=== PATIENT | female | born 1985 | race Caucasian/White ===

== ENCOUNTER 2017-02-01 08:57 | Day surgery (SDC) | payer BC ==
[~2017-02-01 08:57] MED LIST: Sodium Chloride 0.9% 10 ML Syringe FLUSH PRN; Sodium Chloride 0.9% 2.5 ML Syringe FLUSH PRN; ceFAZolin 2 GM in Premix Bag 1 BAG IV ONE
[2017-02-01] MEDS ORDERED: Midazolam 1 MG/ML 2 ML SDV ONE (10:34)
[2017-02-01] MEDS ORDERED: fentaNYL 100 MCG/2 ML SDV ONE ×3 (10:35→12:08)
--- NOTE | 2017-02-01 10:35 | PCM.PREANE ---
Preanesthetic Assessment - Anesthesia/Transfusion/Family Hx Anesthesia History: Prior Anesthesia Reaction Other Type of Anesthesia Reaction Comment: DENIES ANY PROBLEMS WITH ANESTHESIA Family History of Anesthesia Reaction: No Transfusion History: No Prior Transfusion(s) Intubation History: Unknown - Review of Systems General: No Symptoms Pulmonary: No Symptoms Cardiovascular: No Symptoms Gastrointestinal: No Symptoms Neurological: No Symptoms Other: Reports: None - Physical Assessment NPO Status Date: 01/31/17 NPO Status Time: 22:30 O2 Sat by Pulse Oximetry: 97 Respiratory Rate: 16 Vital Signs: Last Vital Signs Temp 36.4 C 02/01/17 09:00 Pulse 63 02/01/17 09:00 Resp 16 02/01/17 09:00 BP 107/68 02/01/17 09:00 Pulse Ox 97 02/01/17 09:00 Height: 1.65 m Weight: 82.554 kg ASA Class: 2 Mental Status: Alert & Oriented x3 Airway Class: Mallampati = 2 Dentition: Reports: Normal Dentition (braces upper and lower) Thyro-Mental Finger Breadths: 3 Mouth Opening Finger Breadths: 3 ROM/Head Extension: Full Lungs: Clear to Auscultation, Normal Respiratory Effort Cardiovascular: Regular Rate, Regular Rhythm - Lab Values: Laboratory Last Values WBC 8.87 K/uL (4.0-11.0) 02/01/17 09:52 RBC 4.67 M/uL (4.30-5.90) 02/01/17 09:52 Hgb 13.3 g/dL (12.0-16.0) 02/01/17 09:52 Hct 39.7 % (36.0-46.0) 02/01/17 09:52 MCV 85.0 fL (80.0-98.0) 02/01/17 09:52 MCH 28.5 pg (27.0-32.0) 02/01/17 09:52 MCHC 33.5 g/dL (31.0-37.0) 02/01/17 09:52 RDW Std Deviation 41.0 fl (28.0-62.0) 02/01/17 09:52 RDW Coeff of Ansley 13 % (11.0-15.0) 02/01/17 09:52 Plt Count 260 K/uL (150-400) 02/01/17 09:52 MPV 9.30 fL (7.40-12.00) 02/01/17 09:52 Nucleated RBC % 0.0 /100WBC 02/01/17 09:52 Nucleated RBCs # 0 K/uL 02/01/17 09:52 - Allergies Allergies/Adverse Reactions: Allergies Allergy/AdvReac Type Severity Reaction Status Date / Time No Known Allergies Allergy Verified 01/27/17 13:35 - Blood Blood Available: No - Anesthesia Plan Pre-Op Medication Ordered: None - Acknowledgements Anesthesia Type Planned: General Anesthesia Pt an Appropriate Candidate for the Planned Anesthesia: Yes Alternatives and Risks of Anesthesia Discussed w Pt/Guardian: Yes Pt/Guardian Understands and Agrees with Anesthesia Plan: Yes PreAnesthesia Questionnaire - Past Health History Medical/Surgical History: Denies Medical/Surgical History HEENT History: Reports: Other (See Below) Other HEENT History: wears glasses, has braces Cardiovascular History: Reports: None Respiratory History: Reports: None Gastrointestinal History: Reports: Irritable Bowel Syndrome Genitourinary History: Reports: None 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, , Other (See Below) (ovarian cyst) Musculoskeletal History: Reports: None Neurological History: Reports: None Psychiatric History: Reports: None Endocrine/Metabolic History: Reports: Obesity/BMI 30+ Hematologic History: Reports: Anemia Immunologic History: Reports: None Oncologic (Cancer) History: Reports: None Dermatologic History: Reports: None - Infectious Disease History Infectious Disease History: Reports: Chicken Pox - Past Surgical History GI Surgical History: Reports: Colonoscopy Female Surgical History: Reports: Breast Reduction, LEEP, Other (See Below) Other Female Surgeries/Procedures: laparoscopy with removal of ovarian cyst Musculoskeletal Surgical History: Reports: Other (See Below) Other Musculoskeletal Surgeries/Procedures:: removal of cysts form right arm - SUBSTANCE USE Smoking Status *Q: Current Every Day Smoker (10-15 cigarettes per day) Tobacco Use Within Last Twelve Months: Cigarettes Days Per Week of Alcohol Use: 1 Number of Drinks Per Day: 1 Total Drinks Per Week: 1 Recreational Drug Use History: No - HOME MEDS Home Medications: Home Meds . [No Known Home Meds] 04/17/16 [History] - CURRENT (IN HOUSE) MEDS Current Meds: Current Medications Sodium Chloride (Saline Flush) 10 ml FLUSH ASDIRECTED PRN PRN Reason: Keep Vein Open Sodium Chloride (Saline Flush) 2.5 ml FLUSH ASDIRECTED PRN PRN Reason: Keep Vein Open Discontinued Medications Cefazolin Sodium/Dextrose 2 gm (/ Premix) 50 mls @ 100 mls/hr IV .ONCE ONE Stop: 01/27/17 05:29
[2017-02-01] MEDS ORDERED: Bupivacaine 0.25% 10 ML SDV ONE (10:41)
[2017-02-01] MEDS ORDERED: Rocuronium 10 MG/ML 10 ML Syringe ONE (11:06)
[2017-02-01] MEDS ORDERED: Methylene Blue 50 MG/10 ML Ampule ONE (11:12)
[2017-02-01] MEDS ORDERED: Ondansetron 4 MG/2 ML SDV ONE ×2 (11:16→11:49)
[2017-02-01] MEDS ORDERED: Ketorolac 30 MG/ML SDV ONE (11:49)
[2017-02-01] MEDS ORDERED: Neostigmine Methylsulfate 1 MG/ML 5 ML Syringe ONE (12:15)
--- NOTE | 2017-02-01 12:48 | PCM.OPNOTE ---
- General Post-Op/Procedure Note Date of Surgery/Procedure: 02/01/17 Operative Procedure(s): Operative Laparoscopy with pelvic washings, aspiration of left ovarian cyst, chromotubation, lysis of adhesions, right salpingectomy Findings: Left ovarian suspected endometrioma, blockage of right fallopian tube with hematosalpinx, and severe adhesions of the ovaries, fallopian tubes and ovaries noted.Posterior cul de sac is obliterated. Stage IV endometriosis. Pre Op Diagnosis: 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. Pelvic pain Post-Op Diagnosis: 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, left ovarian cyst, hematosalpinx Anesthesia Technique: General ET Tube Primary Surgeon: Ondina Small Secondary Surgeon: Nir Billy Pathology: Peritoneal wash, endometrial cyst fluid, fallopian tube Fluid Replacement, Intraop: 1,600 EBL in mLs: 20 Complications: None Condition: Good Free Text/Narrative:: Intake & Output 01/31/17 02/01/17 02/01/17 22:59 06:59 14:59 Output Total 30 Balance -30 [id number]
[2017-02-01] MEDS: fentaNYL 100 MCG/2 ML SDV IVPUSH PRN ×2 (12:52→13:01)
[2017-02-01] MEDS ORDERED: Ondansetron 4 MG/2 ML SDV IVPUSH ONE (13:32)
[2017-02-01 15:03] VITALS: BP 114/73
--- NOTE | 2017-02-02 11:05 | OR ---
SURGEON: Ondina Small M.D. DATE OF PROCEDURE: 02/01/2017 PREOPERATIVE DIAGNOSES: 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 with suspected endometrioma and hematosalpinx. POSTOPERATIVE DIAGNOSES: 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 with suspected endometrioma and hematosalpinx. PROCEDURES PERFORMED: 1. Operative laparoscopy. 2. Pelvic washings. 3. Aspiration of left ovarian cyst. 4. Chromotubation of fallopian tubes. 5. Adhesiolysis. 6. Right salpingectomy. EDGE TRIMMER: Nir Billy MS IV. ANESTHESIA: General. ESTIMATED BLOOD LOSS: Less than 20 mL. FLUIDS: 1600 mL of crystalloid. FINDINGS: Stage IV endometriosis. There is a left probable endometrioma. The left fallopian tube, however, appears grossly normal, and with chromotubation, dye spills easily from the fimbriated end, helping to ensure patency. The uterus is completely adhesed along the posterior aspect to surrounding bowel and mesentery. Posterior cul-de-sac is obliterated. The right fallopian tube and ovary are adhesed to the right posterior aspect of the uterus. The fallopian tube is eventually able to be mobilized. The ovary is not able to be visualized due to the dense adhesions. Upper abdomen appears normal. DISPOSITION: The patient to PACU, stable. SPECIMENS: To Pathology. INDICATIONS FOR PROCEDURE: Amber is a 31-year-old female with known endometriosis. Most recently, she has had acute increase of pain. She has been trying to conceive. The hCG is negative. However, ultrasound had shown an interval significant change from November 2016 to December 2016 with a large, approximately 7 cm suspected endometrioma and a right probable hydrosalpinx versus hematosalpinx. At this time, patient would like to proceed with surgical evaluation to hopefully help alleviate some of the discomfort that she is having and also help to ultimately make plan of care for her regarding her endometriosis. Proper consents were obtained. PROCEDURE IN DETAIL: The patient was taken to the operating room, where she underwent general anesthesia. She was placed in a modified dorsolithotomy position and was prepped and draped in the usual sterile fashion. SCDs to lower extremities. She received 2 g of Ancef prophylactically. She was prepped and draped in usual sterile fashion and a time-out was performed. A speculum was introduced into the vagina. The posterior lip of the cervix was tented downward. The uterine HUMI manipulator was gently introduced into the uterine cavity. The balloon was insufflated. Instruments other than the manipulator were now removed from the vagina. Gloves were changed. Attention turned abdominally. Infraumbilically, region was prepped with 0.25% Marcaine. Please see nurse's notes for total amount dispensed during the procedure. A 5-mm sagittal infraumbilical skin incision was now created. Hemostats were now utilized to dissect down to the level of the fascia, which was tented upward and entered sharply. Edges of the fascia were secured with 0 Vicryl. The peritoneum was now gently entered, it was hemostatic, and the 5-mm trocar was introduced. Pneumoperitoneum was achieved. A laparoscope was introduced. The upper abdomen appears to have no acute pathology. The uterus is fairly adhesed along the posterior aspect. There appears to be a left ovarian cyst, most consistent with an endometrioma. The left fallopian tube appears pink and fairly healthy. Right fallopian tube is swollen, distended, erythematous, and adhesed to the right posterior aspect of the uterus. Right ovary is adhesed to the broad ligament and to the posterior aspect of the uterus. A significant amount of omental bowel adhesions along the posterior aspect of the uterus obliterating the cul-de-sac. A right and left lower quadrant 5 mm trochar is introduced under direct visualization after prepping the regions with 0.25% marcaine and creating 5 mm incisions. Attention is now turned to performing pelvic washings, and these were obtained. The left ovary was now entered with a Harmonic scalpel, and contents were aspirated with suction rubbish collector. The contents appear to have a chocolate cyst appearance, consistent with endometrioma. Once the loculations were broken up and the cyst was adequately evacuated, I cauterized the edge of the region of the cystotomy. A gentle adhesiolysis was performed to mobilize mesentery and omentum away from the posterior aspect of the uterus. Most of these were mobilized bluntly; however, Harmonic scalpel was also utilized to mobilize and release the adhesions. The uterus was now slightly more mobile. Hydrodissection was performed along the right broad ligament of fallopian tube region. The right fallopian tube was now able to be more thoroughly visualized and somewhat more mobile. At this point, chromotubation using dilute methylene blue injecting through the HUMI uterine manipulator was utilized. The left fallopian tube appears patent with dye spilling easily from the fimbriated end. Despite multiple attempts, there is no dye spill seen from the right fallopian tube. It is completely occluded, swollen, and edematous. At this juncture, it was felt to be best to proceed with right salpingectomy in order to remove this diseased tube, which would hopefully help with acute pain, as well as a long-term decrease of the risk for ectopic gestation. The right fallopian tube is now isolated using the Harmonic scalpel. Salpingectomy is performed. The left lower quadrant trocar is replaced with a 12-mm trocar. Endobag was introduced into the abdominal cavity, and the right fallopian tube was able to be placed in this, and the bag with its contents was now removed, to be sent to Pathology for further analysis. Copious irrigation of the pelvis is now performed and suctioned. Hemostasis appears evident. Relief pressure is decreased down to 5 mm. Hemostasis remains evident. The pelvis is once again irrigated and suction dried. The trocars are now removed under direct visualization in the right and left lower quadrant regions. The pneumoperitoneum is released. The laparoscope is removed, as well as the infraumbilical trocar. WOUND CLOSURE: The fascia for the infraumbilical incision is reapproximated using 0 Vicryl, as well as the left lower quadrant fascia. The skin edges are closed using 4-0 Monocryl in subcuticular fashion. COUNT RESULTS: Sponge, instrument, and needle counts were correct x2. The speculum was introduced into the vagina. HUMI uterine manipulator was removed. The region was inspected, and hemostasis was found to be evident. All instruments were removed from vagina. Once again, sponge and instrument and needle counts were correct x2. POSTOPERATIVE CONDITION: The patient tolerated this procedure well. She will go to PACU in stable condition. Specimens to pathology. KODI / KATERINE /[id number] ROBERT
== END 2017-02-01 15:00 | disposition home or self-care (01) ==
LOC: MW.SDS 08:57
PROVIDERS: ATTEND Obstetrics & Gynecology
DX: N80.2 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 of fallopian tube (principal); N73.6 Female pelvic peritoneal adhesions (postinfective); F17.210 Nicotine dependence, cigarettes, uncomplicated; E66.9 Obesity, unspecified; Z98.890 Other specified postprocedural states; Z68.30 Body mass index [BMI] 30.0-30.9, adult
CPT/HCPCS: 36415; 58350; 58661; 84703; 85027; 88104; 88305; J1885; J2250; J2405; J3010; 00840

== ENCOUNTER 2017-10-04 07:42 | Inpatient (IN) | payer BC ==
[~2017-10-04 07:42] MED LIST changes: +Lidocaine 2% 5 ML SDV ONE; +Midazolam 1 MG/ML 2 ML SDV ONE; +Propofol 200 MG/20 ML SDV ONE; +ceFAZolin 1 GM in Premix Bag 1 BAG IV ONE; -ceFAZolin 2 GM in Premix Bag 1 BAG IV ONE; +fentaNYL 100 MCG/2 ML SDV ONE; +fentaNYL 250 MCG/5 ML SDV ONE
[2017-10-04 08:29] LABS: CHLORIDE,CL 104 mmol/L (98-107); SODIUM,NA 140 mmol/L (136-145)
--- NOTE | 2017-10-04 08:30 | PCM.PREANE ---
Preanesthetic Assessment - Anesthesia/Transfusion/Family Hx Anesthesia History: Prior Anesthesia Reaction Other Type of Anesthesia Reaction Comment: DENIES ANY PROBLEMS WITH ANESTHESIA Family History of Anesthesia Reaction: No Transfusion History: No Prior Transfusion(s) Intubation History: Unknown - Review of Systems General: No Symptoms Pulmonary: No Symptoms Cardiovascular: No Symptoms Gastrointestinal: No Symptoms Neurological: No Symptoms Other: Reports: None - Physical Assessment O2 Sat by Pulse Oximetry: 99 Respiratory Rate: 16 Vital Signs: Last Vital Signs Temp 36.4 C 10/04/17 08:01 Pulse 66 10/04/17 08:01 Resp 16 10/04/17 08:01 BP 114/72 10/04/17 08:01 Pulse Ox 99 10/04/17 08:01 Height: 1.65 m Weight: 77.111 kg ASA Class: 2 Mental Status: Alert & Oriented x3 Airway Class: Mallampati = 2 Dentition: Reports: Normal Dentition (braces) Thyro-Mental Finger Breadths: 3 Mouth Opening Finger Breadths: 3 ROM/Head Extension: Full Lungs: Clear to Auscultation, Normal Respiratory Effort Cardiovascular: Regular Rate, Regular Rhythm - Lab Values: Laboratory Last Values WBC 8.75 K/uL (4.0-11.0) 10/04/17 08:00 RBC 5.18 M/uL (4.30-5.90) 10/04/17 08:00 Hgb 15.0 g/dL (12.0-16.0) 10/04/17 08:00 Hct 44.7 % (36.0-46.0) 10/04/17 08:00 MCV 86.3 fL (80.0-98.0) 10/04/17 08:00 MCH 29.0 pg (27.0-32.0) 10/04/17 08:00 MCHC 33.6 g/dL (31.0-37.0) 10/04/17 08:00 RDW Std Deviation 43.4 fl (28.0-62.0) 10/04/17 08:00 RDW Coeff of Ansley 14 % (11.0-15.0) 10/04/17 08:00 Plt Count 240 K/uL (150-400) 10/04/17 08:00 MPV 9.70 fL (7.40-12.00) 10/04/17 08:00 Nucleated RBC % 0.0 /100WBC 10/04/17 08:00 Nucleated RBCs # 0 K/uL 10/04/17 08:00 HCG, Qual NEGATIVE (NEG) 10/04/17 08:00 - Allergies Allergies/Adverse Reactions: Allergies Allergy/AdvReac Type Severity Reaction Status Date / Time No Known Allergies Allergy Verified 10/04/17 08:19 - Blood Blood Available: No - Anesthesia Plan Pre-Op Medication Ordered: None - Acknowledgements Anesthesia Type Planned: General Anesthesia Pt an Appropriate Candidate for the Planned Anesthesia: Yes Alternatives and Risks of Anesthesia Discussed w Pt/Guardian: Yes Pt/Guardian Understands and Agrees with Anesthesia Plan: Yes PreAnesthesia Questionnaire - Past Health History Medical/Surgical History: Denies Medical/Surgical History HEENT History: Reports: Other (See Below) Other HEENT History: wears glasses/contacts Cardiovascular History: Reports: None Respiratory History: Reports: None Gastrointestinal History: Reports: Irritable Bowel Syndrome, Other (See Below) Other Gastrointestinal History: hx colitis Genitourinary History: Reports: None 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: 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, Musculoskeletal History: Reports: None Neurological History: Reports: None Psychiatric History: Reports: None Endocrine/Metabolic History: Reports: Obesity/BMI 30+ Hematologic History: Reports: Anemia Immunologic History: Reports: None Oncologic (Cancer) History: Reports: None Dermatologic History: Reports: None - Infectious Disease History Infectious Disease History: Reports: Chicken Pox - Past Surgical History Head Surgeries/Procedures: Reports: None HEENT Surgical History: Reports: None Cardiovascular Surgical History: Reports: Other (See Below) Other Cardiovascular Surgeries/Procedures: leep GI Surgical History: Reports: Colonoscopy Other GI Surgeries/Procedures: laproscopic removal of Rt.ovarian cyst '14, laparoscopy with Rt. salpingectomy, aspiration of ovarian cyst, chromotubation, adhesiolysis '17. Female Surgical History: Reports: Breast Reduction, LEEP Other Female Surgeries/Procedures: laparoscopy x2, rt salpingectomy and ovarian cystectomy Musculoskeletal Surgical History: Reports: Other (See Below) Other Musculoskeletal Surgeries/Procedures:: removal of cysts form right arm - SUBSTANCE USE Smoking Status *Q: Current Every Day Smoker (< 1ppd) Tobacco Use Within Last Twelve Months: Cigarettes Recreational Drug Use History: No - HOME MEDS Home Medications: Home Meds Estradiol 0.5 mg PO DAILY 09/29/17 [History] - CURRENT (IN HOUSE) MEDS Current Meds: Current Medications Sodium Chloride (Saline Flush) 10 ml FLUSH ASDIRECTED PRN PRN Reason: Keep Vein Open Sodium Chloride (Saline Flush) 2.5 ml FLUSH ASDIRECTED PRN PRN Reason: Keep Vein Open Discontinued Medications Fentanyl (Sublimaze) Confirm Administered Dose 100 mcg .ROUTE .STK-MED ONE Stop: 10/04/17 07:23 Fentanyl (Sublimaze) Confirm Administered Dose 250 mcg .ROUTE .STK-MED ONE Stop: 10/04/17 07:23 Cefazolin Sodium/Dextrose 1 gm (/ Premix) 50 mls @ 100 mls/hr IV ONETIME ONE Stop: 10/04/17 05:29 Lidocaine (Xylocaine-Mpf 2%) Confirm Administered Dose 10 ml .ROUTE .STK-MED ONE Stop: 10/04/17 07:22 Midazolam HCl (Versed 1 Mg/Ml) Confirm Administered Dose 2 mg .ROUTE .STK-MED ONE Stop: 10/04/17 07:23 Propofol (Diprivan 20 Ml) Confirm Administered Dose 400 mg .ROUTE .STK-MED ONE Stop: 10/04/17 07:23
[2017-10-04] MEDS ORDERED: Scopolamine 1.5 MG Transdermal Patch TRDERM PRN (08:31)
[2017-10-04] MEDS ORDERED: Scopolamine 1.5 MG Transdermal Patch ONE (08:31)
[2017-10-04] MEDS ORDERED: HYDROmorphone 2 MG/ML SDV ONE (09:13)
[2017-10-04] MEDS ORDERED: ePHEDrine 50 MG/ML SDV ONE (09:17)
[2017-10-04] MEDS ORDERED: fentaNYL 100 MCG/2 ML SDV IVPUSH PRN (09:31)
[2017-10-04] MEDS ORDERED: Propofol 200 MG/20 ML SDV ONE ×3 (09:53→11:42)
[2017-10-04] MEDS ORDERED: fentaNYL 100 MCG/2 ML SDV ONE ×3 (09:55→13:22)
[2017-10-04] MEDS ORDERED: Octyl 2-Cyanoacrylate 1 Tube ONE (10:09)
[2017-10-04] MEDS ORDERED: Furosemide 40 MG/4 ML VIAL ONE (10:49)
[2017-10-04] MEDS ORDERED: Fluorescein 5 ML Vial ONE (10:49)
[2017-10-04] MEDS ORDERED: HYDROmorphone 2 MG/ML SDV IVPUSH ONE (12:40)
[2017-10-04] MEDS ORDERED: Neostigmine Methylsulfate 1 MG/ML 5 ML Syringe ONE (13:20)
[2017-10-04] MEDS ORDERED: Ondansetron 4 MG/2 ML SDV ONE (13:20)
[2017-10-04] MEDS ORDERED: Glycopyrrolate 0.2 MG/ML SDV ONE (13:20)
[2017-10-04] MEDS ORDERED: Rocuronium 10 MG/ML 10 ML Syringe ONE (13:20)
[2017-10-04] MEDS ORDERED: Sugammadex Sodium 200 MG/2 ML VIAL ONE (13:42)
[2017-10-04] MEDS ORDERED: Aluminum Hydroxide/Magnesium Hydroxide/Simethicone Susp 30 ML Cup PO PRN (13:50)
[2017-10-04] MEDS ORDERED: Acetaminophen/oxyCODONE 325-5 MG Tab PO PRN (13:50)
[2017-10-04] MEDS ORDERED: Promethazine 25 MG/ML SDV IM PRN (13:50)
[2017-10-04] MEDS ORDERED: Ibuprofen 600 MG Tab PO PRN (13:50)
--- NOTE | 2017-10-04 13:51 | CONS ---
DATE OF CONSULTATION: 10/04/2017 DATE OF : 1985 PRIMARY CARE PHYSICIAN: None PCP This 32-year-old undergoing hysterectomy. I was asked to come in and consult because the right ureter on cystoscopy was not showing efflux. So the cystoscope was put back in and the left ureter had good urinary flow, but noting coming out of the right side. I tried to pass a 6-Indian whistle-tip through the ureter, it would not go beyond the lower 2 inches maybe of the ureter. Putting the rigid ureteroscope was not helpful. I advanced a Glidewire through the lower ureter and confirmed with fluoroscopy that the upper end was in the kidney. At that point, it was easier to see the lower ureter and appears to have a kink, possibly pulled away by a stitch, but I could not see any stitches inside the ureter, so I put a double-J stent in to make sure the kidney is safe and the patient was then turned over to Dr. Small for the rest of the patient's management. I will keep the double-J stent in for probably 8 weeks and then take it out, get a study, possibly CT abdomen and pelvis without contrast to see if there is any hydronephrosis or hydroureter, and if not then we are done. We just follow up with an IVP in about 6 months. If continues to be a blockage, then I would go back and dilate that segment of the ureter and stent it again. AKSHAT / KATERINE /[id number]
--- NOTE | 2017-10-04 14:12 | PCM.OPNOTE ---
- General Post-Op/Procedure Note Date of Surgery/Procedure: 10/04/17 Operative Procedure(s): Total abdominal hysterectomy/bilateral oophorectomy/ left salpingectomy, extensive adhesiolysis, cystoscopy. Cystoscoy with right ureteral stent placement per Dr Lopez Findings: Stage IV endometrios with bilateral endometriomas, obliterated cul de sac, extensive tuboovarian/bowel/pelvic/uterine adhesions Pre Op Diagnosis: Stage IV endometriosis. Pelvic pain, dyspareunia Post-Op Diagnosis: Same Anesthesia Technique: General ET Tube Primary Surgeon: Ondina Small Coping Machine Operator: Flavia Adkins Pathology: uterus, cervix, left tube/ovary, right ovary with tube remnant Fluid Replacement, Intraop: 4,600 EBL in mLs: 500 Complications: Right ureteral partial obstruction, J stent placed by urologist, Dr Lopez Condition: Fair Free Text/Narrative:: Dictation [id number], time spent on adhesiolysis approximately 55 minutes
[2017-10-04] MEDS: Morphine PF 30 MG/30 ML PCA Vial IV SCH (14:36)
--- NOTE | 2017-10-04 15:00 | PCM.POSTAN ---
POST ANESTHESIA ASSESSMENT - MENTAL STATUS Mental Status: Alert, Oriented - RESPIRATORY Respiratory Status: Respiratory Rate WNL, Airway Patent, O2 Saturation Stable - CARDIOVASCULAR CV Status: Pulse Rate WNL, Blood Pressure Stable - GASTROINTESTINAL GI Status: No Symptoms - POST OP HYDRATION Hydration Status: Adequate & Stable
--- NOTE | 2017-10-04 16:40 | CR ---
EXAMINATION: Bilateral ureteroscopy HISTORY: Ureteroscopy COMPARISON: None TECHNIQUE: 5 fluoroscopic images provided FINDINGS/IMPRESSION: Operative control films demonstrate selection of the right ureter with subsequen t stent placement.
[2017-10-04] MEDS: ceFAZolin 1 GM in Premix Bag 1 BAG IV SCH (20:48)
[2017-10-04] MEDS: Ondansetron 4 MG/2 ML SDV IVPUSH PRN (20:51)
[2017-10-04] MEDS: Docusate Sodium 100 MG Cap PO SCH (20:54)
[2017-10-04] MEDS: Acetaminophen/oxyCODONE 325-5 MG Tab PO PRN (21:30)
--- NOTE | 2017-10-04 22:12 | OR ---
SURGEON: Ondina Small M.D. DATE OF PROCEDURE: 10/04/2017 PREOPERATIVE DIAGNOSES: 1. Stage IV endometriosis. 2. Pelvic pain, dyspareunia. POSTOPERATIVE DIAGNOSES: 1. Stage IV endometriosis. 2. Pelvic pain, dyspareunia. PROCEDURES PERFORMED: 1. Total abdominal hysterectomy. 2. Left salpingo-oophorectomy. 3. Right oophorectomy. 4. Cystoscopy. 5. Right ureteral stent placement per Dr. Lopez. HOME HEALTH MANAGER: Flavia Adkins M.D. PROCEDURES RN: Isidro Lopez M.D., Urology. ANESTHESIA: General endotracheal anesthesia. ESTIMATED BLOOD LOSS: 500 mL. FLUIDS: 4600 mL crystalloid. COMPLICATIONS: Partial right ureteral obstruction, J ureteral stent placed. DISPOSITION: The patient to PACU in fair condition. PROCEDURE IN DETAIL: Amber is a 32-year-old female with known stage IV endometriosis, would like to proceed with definitive surgical intervention. Risks of the procedure have been discussed before. She understands that this will be an extensive surgery with her known stage IV endometriosis and extensive pelvic adhesions. After proper consents were obtained, the patient was taken to the operating room, where she underwent general endotracheal anesthesia and was placed in dorsal supine position with modified lithotomy positioning for the legs. Whitehead to gravity. SCDs to lower extremities. Received Ancef prophylactically. She was prepped and draped in the usual sterile fashion. Time-out was performed. A Pfannenstiel skin incision was created and carried down to the level of the rectus fascia, which was incised in midline, lateralized on either side sharply and bluntly. The superior aspect of the fascia was tented upward and dissected sharply and bluntly from the underlying muscles. In a similar fashion, this was performed on the inferior aspect of the fascia. The rectus muscles were in the midline. Peritoneum was tented upward and entered sharply. Peritoneum and rectus muscles were now lateralized bluntly. Peritoneal contents were identified. As expected, there were significant xocgy-mmlw-imkjrpw adhesions and bowel adhesions with obliterated posterior cul-de-sac. The O'Tino-O'Calderon retractor was gently placed to mobilize the bowel away from the operative field with packing and upper blade. A lower bladder blade was used to reduce the bladder. The uterus was able to be identified and cornua was grasped with Pean clamp. There were extensive left-sided aqeul-rdwv-jfaboua adhesions noted. These were sharply dissected meticulously with the Metzenbaum scissors. Bowel adhesions along this side were also dissected. At this juncture, was able to mobilize the tube and ovary more easily. I was able to secure the left round ligament with a Z-Clamp. The pedicle was transected and suture ligated with 2-0 Vicryl. Remainder of the sutures will be 2-0 Vicryl unless otherwise mentioned. The medial leaf of the broad ligament was now further dissected. The infundibulopelvic ligament was able to be identified on this side and was secured with Z-Clamp x2, transected, and suture ligated. Attention was now turned to the patient's right side, was not able to easily identify the right ovary. The tube had already been removed with previous surgery. The right round ligament was now able to be identified and grasped with the Z-Clamp, transected, and suture ligated. The medial leaf of the broad ligament was further dissected and was able to take in all the pedicle involving the broad ligament with Z-Clamp, transected, and suture ligated. Attention was now returned to the left side, where another pedicle of the broad ligament was able to be secured, transected, and suture ligated. At this juncture, was able to perform adhesiolysis of the posterior cul-de-sac along the anterior vesicouterine reflection. There was a fair amount of adhesions along the anterior cul-de-sac as well. However, the peritoneal plane was able to be identified and transected, and the uterovesical reflection was now able to be mobilized away from the lower uterine segment and cervix. Attention was turned to further dissection along the obliterated posterior cul- de-sac. With careful sharp and blunt dissection, was able to mobilize these, mostly omental adhesions away from the operative field in order to be able to palpate uterosacral ligaments. During this dissection, was able to identify the right ovary, which was completely adhesed to the right uterosacral ligament. With careful dissection, was able to mobilize the ovary. This allowed isolation of the cardinal ligament on either side, which were now skeletonized, secured with Z-Clamp and transected. Attention was returned to performing dissection around the right ovary, was able to dissect along the vascular supply in order to form a pedicle. I was able to palpate the ureter, was felt to be deep within the pelvis. This pedicle was now skeletonized and then secured with Z-Clamp, transected, and suture ligated x2. The specimen to pathology. The attention was now turned to securing the uterosacral ligament on either side of the uterus with Z-Clamp, transected, and suture ligated with 0 Vicryl. The vagina was entered along the right side, and the cervix was able to be circumscribed sharply. The uterus and cervix were now able to be handed off to central services tech to be sent to pathology. The edges of the vaginal cuff were now secured with Amara clamps. The vaginal apex was secured to the uterosacral ligament on either side, and the cuff was closed using 0 Vicryl in continuous running locked fashion followed by a re- imbricating layer. Areas of oozing along the bladder pillars were able to be secured with sutures x2. Otherwise, oozing along the bladder was able to be cauterized. Hemostasis thereafter evident. The pedicles were closely inspected. The pelvis was well irrigated. Hemostasis was evident overall. Therefore, attention was turned to performing cystoscopy. Sodium fluorescein and 5 mg Lasix were delivered via IV by search engine marketing strategist. The Whitehead catheter balloon was deflated. The catheter was removed, and cystoscope was introduced into the bladder. The dome of the bladder was able to be visualized and found to be intact. The left ureteral orifice followed by the right ureteral orifice were identified. The left ureteral orifice had fluorescein dyed urine stain streaming from them; however, with observation, was not able to see fluorescein dyed urine streaming from the right ureteral orifice despite observation over approximately 25 minutes time. At that juncture, was able to consult Urology, Dr. Lopez. The bladder was now drained at this juncture, and attention was turned to performing a closer inspection of the rectal mucosa. A rectal dilator probe was gently introduced into the rectum, able to visualize this abdominally, and was able to oversew, where the dissection had performed in order to release the obliterated cul-de-sac. The mucosa was oversewn with a 3-0 plain on a V20 needle. There were no actual defects in the rectal mucosa noted and no area of perforation. The rectal probe was now gently removed. Gloves changed. Attention returned. The vagina was inspected and found to be hemostatic, and the cystoscope was once again reintroduced while awaiting for Dr. Lopez to present. Upon his presentation, he was ultimately able to place a guidewire in the right ureter to the kidney and place a stent. There was questionable partial occlusion or a kink in the ureter along the lower part of the pelvis, which we closest to most likely the uterosacral juncture. Therefore, attention was turned to where we actually did a partial cuff revision releasing the sutures along the right uterosacral ligament and placing sutures more medial to where they had been. At this point, a J-stent had been placed by Dr. Lopez, and fluorescein dyed urine was seen streaming from the orifice. The stent will stay in place. Please see Dr. Lopez's consult note. The bladder was now drained. Whitheead catheter was replaced. Gloves changed, and the pelvis was copiously irrigated. Any oozing was cauterized. All sutures trimmed. Surgicel was placed along the cuff line. The ureteral stent was able to be palpated, and there were no sutures located near the stent at this juncture, and there was no region where it felt like it was being pulled or kinked. The O'Tino-O'Calderon retractor was removed from the abdominal cavity as well as all packing. The rectus muscles were reapproximated using 0 Vicryl in inverted mattress suture technique. Anterior aspect of the muscle and posterior aspect of the fascia were closely inspected. Any areas of oozing were cauterized. The rectus fascia was reapproximated using 0 Vicryl beginning laterally and tied in the midline in continuous running fashion. Subcutaneous tissue was now well irrigated and suctioned dried. Any areas of oozing were cauterized. The skin edges were reapproximated using 3-0 Vicryl on a Osvaldo needle in subcuticular fashion followed by a re-imbricating half-inch Steri- Strips. The sponge, instrument, and needle count was correct x3. The patient had tolerated the procedure well overall. She did receive a second dose of Ancef 3 hours into the procedure. She will go to PACU in fair condition. SPECIMENS: Pathology. KODI / KATERINE /[id number] MTDD
[2017-10-05] MEDS: Lactated Ringers 1,000 ML IV SCH ×2 (01:43→10:25)
[2017-10-05] MEDS: Morphine PF 30 MG/30 ML PCA Vial IV SCH (03:50)
[2017-10-05] MEDS: Acetaminophen/oxyCODONE 325-5 MG Tab PO PRN ×3 (03:55→20:34)
[2017-10-05] MEDS: ceFAZolin 1 GM in Premix Bag 1 BAG IV SCH ×2 (04:00→11:02)
[2017-10-05] MEDS: Ondansetron 4 MG/2 ML SDV IVPUSH PRN ×2 (04:10→10:49)
[2017-10-05 05:29] LABS: CHLORIDE,CL 105 mmol/L (98-107); SODIUM,NA 138 mmol/L (136-145)
--- NOTE | 2017-10-05 07:29 | PCM48HPAN ---
Post Anesthesia Note - EVALUATION WITHIN 48HRS OF ANESTHETIC Vital Signs in Normal Range: Yes Patient Participated in Evaluation: Yes Respiratory Function Stable: Yes Airway Patent: Yes Cardiovascular Function Stable: Yes Hydration Status Stable: Yes Pain Control Satisfactory: Yes Nausea and Vomiting Control Satisfactory: Yes Mental Status Recovered: Yes Resp Rate: 16
--- NOTE | 2017-10-05 08:15 | PCM.PN ---
- General Info Date of Service: 10/05/17 Functional Status: Reports: Pain Controlled, Tolerating Diet - Review of Systems General: Denies: Fever, Weakness Pulmonary: Denies: Shortness of Breath Cardiovascular: Denies: Chest Pain, Palpitations, Lightheadedness Gastrointestinal: Reports: Abdominal Pain (mainly incisional burning, tolerating percocet). Denies: Nausea Genitourinary: Denies: Flank Pain Neurological: Denies: Confusion, Headache Psychiatric: Reports: No Symptoms - Patient Data Vitals - Most Recent: Last Vital Signs Temp 36.7 C 10/05/17 04:00 Pulse 105 H 10/05/17 04:00 Resp 16 10/05/17 07:29 BP 114/76 10/05/17 04:00 Pulse Ox 92 L 10/05/17 00:00 Weight - Most Recent: 77.111 kg I&O - Last 24 Hours: Intake & Output 10/04/17 10/05/17 10/05/17 22:59 06:59 14:59 Intake Total 0 1543 Output Total 225 850 Balance -225 693 Lab Results Last 24 Hours: Laboratory Results - last 24 hr 10/04/17 10/04/17 10/04/17 Range/Units 08:00 08:00 08:00 WBC 8.75 (4.0-11.0) K/uL RBC 5.18 (4.30-5.90) M/uL Hgb 15.0 (12.0-16.0) g/dL Hct 44.7 (36.0-46.0) % MCV 86.3 (80.0-98.0) fL MCH 29.0 (27.0-32.0) pg MCHC 33.6 (31.0-37.0) g/dL RDW Std Deviation 43.4 (28.0-62.0) fl RDW Coeff of Ansley 14 (11.0-15.0) % Plt Count 240 (150-400) K/uL MPV 9.70 (7.40-12.00) fL Neut % (Auto) (48.0-80.0) % Lymph % (Auto) (16.0-40.0) % [place] % (Auto) (0.0-15.0) % Eos % (Auto) (0.0-7.0) % Baso % (Auto) (0.0-1.5) % Neut # (Auto) (1.4-5.7) K/uL Lymph # (Auto) (0.6-2.4) K/uL [place] # (Auto) (0.0-0.8) K/uL Eos # (Auto) (0.0-0.7) K/uL Baso # (Auto) (0.0-0.1) K/uL Nucleated RBC % 0.0 /100WBC Nucleated RBCs # 0 K/uL Sodium 140 (136-145) mmol/L Potassium 3.7 (3.5-5.1) mmol/L Chloride 104 (98-107) mmol/L Carbon Dioxide 25.9 (21.0-32.0) mmol/L BUN 12 (7.0-18.0) mg/dL Creatinine 1.0 (0.6-1.0) mg/dL Est Cr Clr Drug Dosing 72.00 mL/min Estimated GFR (MDRD) > 60.0 ml/min Glucose 98 (74-106) mg/dL Calcium 9.3 (8.5-10.1) mg/dL HCG, Qual NEGATIVE (NEG) Blood Type Antibody Screen 10/04/17 10/05/17 10/05/17 Range/Units 08:00 05:00 05:00 WBC 12.05 H (4.0-11.0) K/uL RBC 3.63 L (4.30-5.90) M/uL Hgb 10.5 L (12.0-16.0) g/dL Hct 31.8 L (36.0-46.0) % MCV 87.6 (80.0-98.0) fL MCH 28.9 (27.0-32.0) pg MCHC 33.0 (31.0-37.0) g/dL RDW Std Deviation 44.5 (28.0-62.0) fl RDW Coeff of [place] 14 (11.0-15.0) % Plt Count 194 (150-400) K/uL MPV 9.20 (7.40-12.00) fL Neut % (Auto) 74.8 (48.0-80.0) % Lymph % (Auto) 18.4 (16.0-40.0) % [place] % (Auto) 6.1 (0.0-15.0) % Eos % (Auto) 0.5 (0.0-7.0) % Baso % (Auto) 0.2 (0.0-1.5) % Neut # (Auto) 9.0 H (1.4-5.7) K/uL Lymph # (Auto) 2.2 (0.6-2.4) K/uL [place] # (Auto) 0.7 (0.0-0.8) K/uL Eos # (Auto) 0.1 (0.0-0.7) K/uL Baso # (Auto) 0.0 (0.0-0.1) K/uL Nucleated RBC % 0.0 /100WBC Nucleated RBCs # 0 K/uL Sodium 138 (136-145) mmol/L Potassium 3.7 (3.5-5.1) mmol/L Chloride 105 (98-107) mmol/L Carbon Dioxide 28.9 (21.0-32.0) mmol/L BUN 9 (7.0-18.0) mg/dL Creatinine 0.9 (0.6-1.0) mg/dL Est Cr Clr Drug Dosing 80.00 mL/min Estimated GFR (MDRD) > 60.0 ml/min Glucose 124 H (74-106) mg/dL Calcium 8.0 L (8.5-10.1) mg/dL HCG, Qual (NEG) Blood Type O POSITIVE Antibody Screen NEGATIVE Med Orders - Current: Current Medications Al Hydroxide/Mg Hydroxide (Mag-Al Plus) 30 ml PO Q4H PRN PRN Reason: Indigestion Docusate Sodium (Colace) 100 mg PO BID [facility] Last Admin: 10/04/17 20:54 Dose: 100 mg Estradiol (Climara) 0.1 mg TRDERM Q7D [facility] Last Admin: 10/04/17 16:13 Dose: 0.1 mg Fentanyl (Sublimaze) 50 mcg IVPUSH Q5M PRN PRN Reason: Pain (severe 7-10) Stop: 10/05/17 09:31 Lactated Ringer's (Ringers, Lactated) 1,000 mls @ 125 mls/hr IV ASDIRECTED [facility] Last Admin: 10/05/17 01:43 Dose: 125 mls/hr Cefazolin Sodium/Dextrose 1 gm (/ Premix) 0 mls @ 100 mls/hr IV Q8H [facility] Stop: 10/05/17 12:01 Last Admin: 10/05/17 04:00 Dose: 100 mls/hr Ibuprofen (Motrin) 600 mg PO Q6H PRN PRN Reason: Pain (mild 1-3) Morphine Sulfate (Morphine Pump Technician 30 Mg In 30 Ml) 30 mg IV ASDIRECTED [facility]; Protocol Last Admin: 10/05/17 03:50 Dose: 30 mg Ondansetron HCl (Zofran) 4 mg IVPUSH Q6H PRN PRN Reason: Nausea/Vomiting Last Admin: 10/05/17 04:10 Dose: 4 mg Oxycodone/Acetaminophen (Percocet 325-5 Mg) 1 tab PO Q4H PRN PRN Reason: Pain (moderate 4-6) Oxycodone/Acetaminophen (Percocet 325-5 Mg) 2 tab PO Q4H PRN PRN Reason: Pain (moderate 4-6) Last Admin: 10/05/17 03:55 Dose: 2 tab Promethazine HCl (Phenergan) 25 mg IM Q6H PRN PRN Reason: Nausea/Vomiting Last Admin: 10/04/17 15:33 Dose: 25 mg Scopolamine (Transderm-Scop) 1.5 mg TRDERM Q72H PRN PRN Reason: Nausea Last Admin: 10/04/17 08:35 Dose: 1.5 mg Sodium Chloride (Saline Flush) 10 ml FLUSH ASDIRECTED PRN PRN Reason: Keep Vein Open Sodium Chloride (Saline Flush) 2.5 ml FLUSH ASDIRECTED PRN PRN Reason: Keep Vein Open Discontinued Medications Ephedrine Sulfate (Ephedrine Sulfate) Confirm Administered Dose 50 mg .ROUTE .STK-MED ONE Stop: 10/04/17 09:18 Fentanyl (Sublimaze) Confirm Administered Dose 100 mcg .ROUTE .STK-MED ONE Stop: 10/04/17 07:23 Fentanyl (Sublimaze) Confirm Administered Dose 250 mcg .ROUTE .STK-MED ONE Stop: 10/04/17 07:23 Fentanyl (Sublimaze) Confirm Administered Dose 100 mcg .ROUTE .STK-MED ONE Stop: 10/04/17 09:56 Fentanyl (Sublimaze) Confirm Administered Dose 100 mcg .ROUTE .STK-MED ONE Stop: 10/04/17 11:40 Fentanyl (Sublimaze) Confirm Administered Dose 100 mcg .ROUTE .ST-MED ONE Stop: 10/04/17 13:23 Fluorescein Sodium (Ak-Fluor) Confirm Administered Dose 5 ml .ROUTE .ST-MED ONE Stop: 10/04/17 10:50 Furosemide (Lasix) Confirm Administered Dose 40 mg .ROUTE .ST-MED ONE Stop: 10/04/17 10:50 Glycopyrrolate (Robinul) Confirm Administered Dose 0.6 mg .ROUTE .ST-MED ONE Stop: 10/04/17 13:21 Hydromorphone HCl (Dilaudid) Confirm Administered Dose 2 mg .ROUTE .[facility]-MED ONE Stop: 10/04/17 09:14 Hydromorphone HCl (Dilaudid) 0 mg IVPUSH ONETIME ONE Stop: 10/04/17 12:41 Last Admin: 10/04/17 14:54 Dose: Not Given Cefazolin Sodium/Dextrose 1 gm (/ Premix) 50 mls @ 100 mls/hr IV ONETIME ONE Stop: 10/04/17 05:29 Last Admin: 10/04/17 14:54 Dose: Not Given Lidocaine (Xylocaine-Mpf 2%) Confirm Administered Dose 10 ml .ROUTE .[facility]-MED ONE Stop: 10/04/17 07:22 Midazolam HCl (Versed 1 Mg/Ml) Confirm Administered Dose 2 mg .ROUTE .[facility]-MED ONE Stop: 10/04/17 07:23 Neostigmine Methylsulfate (Neostigmine) Confirm Administered Dose 5 mg .ROUTE .ST-MED ONE Stop: 10/04/17 13:21 Octyl Cyanoacrylate (Dermabond Advance) Confirm Administered Dose 1 applic .ROUTE .[facility]-MED ONE Stop: 10/04/17 10:10 Ondansetron HCl (Zofran) Confirm Administered Dose 8 mg .ROUTE .ST-MED ONE Stop: 10/04/17 13:21 Propofol (Diprivan 20 Ml) Confirm Administered Dose 400 mg .ROUTE .STK-MED ONE Stop: 10/04/17 07:23 Propofol (Diprivan 20 Ml) Confirm Administered Dose 200 mg .ROUTE .ST-MED ONE Stop: 10/04/17 09:54 Propofol (Diprivan 20 Ml) Confirm Administered Dose 200 mg .ROUTE .STK-MED ONE Stop: 10/04/17 10:41 Propofol (Diprivan 20 Ml) Confirm Administered Dose 200 mg .ROUTE .STK-MED ONE Stop: 10/04/17 11:43 Rocuronium [place] (Zemuron) Confirm Administered Dose 200 mg .ROUTE .STK-MED ONE Stop: 10/04/17 13:21 Scopolamine (Transderm-Scop) Confirm Administered Dose 1.5 mg .ROUTE .STK-MED ONE Stop: 10/04/17 08:32 Last Admin: 10/04/17 14:54 Dose: Not Given Sugammadex Sodium (Bridion) Confirm Administered Dose 200 mg .ROUTE .STK-MED ONE Stop: 10/04/17 13:43 - Exam General: Alert, Oriented Lungs: Normal Respiratory Effort Cardiovascular: Regular Rate, Regular Rhythm GI/Abdominal Exam: Normal Bowel Sounds, Soft Back Exam: No: CVA Tenderness (L), CVA Tenderness (R) Extremities: Pedal Edema (trace). No: Delmi's Sign Skin: Warm, Dry, Intact Wound/Incisions: Healing Well, No Drainage. No: Erythema Psy/Mental Status: Alert, Normal Affect - Problem List & Annotations (1) 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 SNOMED Code(s): 331831219 Code(s): N80.9 - ENDOMETRIOSIS, UNSPECIFIED Status: Acute Current Visit: Yes - Problem List Review Problem List Initiated/Reviewed/Updated: Yes - My Orders Last 24 Hours: My Active Orders 10/04/17 13:50 Patient Status [ADT] Routine May Shower [RC] ASDIRECTED Notify Provider Intake and Out [RC] ASDIRECTED Notify Provider Vital Signs [RC] ASDIRECTED RT Incentive Spirometry [RC] Q2HWA Up With Assistance [RC] PER UNIT ROUTINE Up ad Ramya [RC] PER UNIT ROUTINE Urinary Catheter Removal [RC] Per Unit Routine Vital Signs [RC] Q4H Acetaminophen/oxyCODONE [Percocet 325-5 MG] 1 tab PO Q4H PRN Acetaminophen/oxyCODONE [Percocet 325-5 MG] 2 tab PO Q4H PRN Alum Hydrox/Mag Hydrox/Simeth [Mag-Al Plus] 30 ml PO Q4H PRN Ibuprofen [Motrin] 600 mg PO Q6H PRN Ondansetron [Zofran] 4 mg IVPUSH Q6H PRN Promethazine [Phenergan] 25 mg IM Q6H PRN Peripheral IV Discontinue [OM.PC] Routine Sequential Compression Device [OM.PC] Per Unit Routine Resuscitation Status Routine 10/04/17 13:51 Abdominal Binder [OM.PC] Per Unit Routine Ice Therapy [OM.PC] Per Unit Routine 10/04/17 14:00 Estradiol [Climara] 0.1 mg TRDERM Q7D Morphine PF [Morphine DRIVER RECRUITER 30 MG in 30 ML] 30 mg IV ASDIRECTED 10/04/17 20:00 Lactated Ringers [Ringers, Lactated] 1,000 ml IV ASDIRECTED ceFAZolin [Ancef] 1 gm Premix Bag 1 bag IV Q8H 10/04/17 21:00 Docusate Sodium [Colace] 100 mg PO BID 10/04/17 Dinner Clear Liquid Diet [DIET] 10/05/17 Breakfast Regular Diet [DIET] - Assessment Assessment:: POD 1 status post JUNIOR/LSO/right oophorectomy/etensive adhesiolysis/cystoscopy with J ureteral stent placed Stage IV endometriosis - Plan Plan:: Explained intraoperative findings and procedure She is doing well overall, working with pain regimen. She is now tolerating percocet. Ambulate halls today, may remove catheter. Labs and VS are reassuring overall. Continued iv ancef prophylactically given extensive adhesiolysis and operative time Patient agrees to plan of care.
[2017-10-05] MEDS: Docusate Sodium 100 MG Cap PO SCH ×2 (10:26→20:35)
[2017-10-05] MEDS ORDERED: diphenhydrAMINE 25 MG Cap PO PRN (18:02)
[2017-10-06] MEDS: Acetaminophen/oxyCODONE 325-5 MG Tab PO PRN ×4 (04:38→21:09)
[2017-10-06] MEDS: Docusate Sodium 100 MG Cap PO SCH ×2 (08:46→21:06)
--- NOTE | 2017-10-06 09:09 | PCM.PN ---
- General Info Date of Service: 10/06/17 Functional Status: Reports: Pain Controlled, Tolerating Diet, Ambulating, Urinating (with hematuria, reassured this is due to stent) - Review of Systems General: Reports: Fatigue. Denies: Fever, Weakness Pulmonary: Denies: Shortness of Breath Cardiovascular: Denies: Chest Pain, Palpitations, Lightheadedness Gastrointestinal: Reports: Abdominal Pain (incisional, controlled overall). Denies: Flatus, Nausea, Vomiting Genitourinary: Reports: Urgency. Denies: Flank Pain Neurological: Denies: Confusion, Headache Psychiatric: Reports: No Symptoms - Patient Data Vitals - Most Recent: Last Vital Signs Temp 36.8 C 10/06/17 03:00 Pulse 82 10/06/17 03:00 Resp 18 10/06/17 03:00 BP 104/61 10/06/17 03:00 Pulse Ox 98 10/06/17 03:00 Weight - Most Recent: 77.111 kg I&O - Last 24 Hours: Intake & Output 10/05/17 10/06/17 10/06/17 22:59 06:59 14:59 Intake Total 1406 1120 Output Total 2900 Balance 1406 -1780 Med Orders - Current: Current Medications Al Hydroxide/Mg Hydroxide (Mag-Al Plus) 30 ml PO Q4H PRN PRN Reason: Indigestion Diphenhydramine HCl (Benadryl) 25 mg PO Q6H PRN PRN Reason: Itching Last Admin: 10/05/17 18:12 Dose: 25 mg Docusate Sodium (Colace) 100 mg PO BID [facility] Last Admin: 10/06/17 08:46 Dose: 100 mg Estradiol (Climara) 0.1 mg TRDERM Q7D [facility] Last Admin: 10/04/17 16:13 Dose: 0.1 mg Lactated Ringer's (Ringers, Lactated) 1,000 mls @ 125 mls/hr IV ASDIRECTED [facility] Last Admin: 10/05/17 10:25 Dose: 125 mls/hr Ibuprofen (Motrin) 600 mg PO Q6H PRN PRN Reason: Pain (mild 1-3) Ondansetron HCl (Zofran) 4 mg IVPUSH Q6H PRN PRN Reason: Nausea/Vomiting Last Admin: 10/05/17 10:49 Dose: 4 mg Oxycodone/Acetaminophen (Percocet 325-5 Mg) 1 tab PO Q4H PRN PRN Reason: Pain (moderate 4-6) Oxycodone/Acetaminophen (Percocet 325-5 Mg) 2 tab PO Q4H PRN PRN Reason: Pain (moderate 4-6) Last Admin: 10/06/17 08:51 Dose: 2 tab Promethazine HCl (Phenergan) 25 mg IM Q6H PRN PRN Reason: Nausea/Vomiting Last Admin: 10/04/17 15:33 Dose: 25 mg Scopolamine (Transderm-Scop) 1.5 mg TRDERM Q72H PRN PRN Reason: Nausea Last Admin: 10/04/17 08:35 Dose: 1.5 mg Sodium Chloride (Saline Flush) 10 ml FLUSH ASDIRECTED PRN PRN Reason: Keep Vein Open Sodium Chloride (Saline Flush) 2.5 ml FLUSH ASDIRECTED PRN PRN Reason: Keep Vein Open Discontinued Medications Ephedrine Sulfate (Ephedrine Sulfate) Confirm Administered Dose 50 mg .ROUTE .STK-MED ONE Stop: 10/04/17 09:18 Fentanyl (Sublimaze) Confirm Administered Dose 100 mcg .ROUTE .STK-MED ONE Stop: 10/04/17 07:23 Fentanyl (Sublimaze) Confirm Administered Dose 250 mcg .ROUTE .STK-MED ONE Stop: 10/04/17 07:23 Fentanyl (Sublimaze) 50 mcg IVPUSH Q5M PRN PRN Reason: Pain (severe 7-10) Stop: 10/05/17 09:31 Fentanyl (Sublimaze) Confirm Administered Dose 100 mcg .ROUTE .STK-MED ONE Stop: 10/04/17 09:56 Fentanyl (Sublimaze) Confirm Administered Dose 100 mcg .ROUTE .STK-MED ONE Stop: 10/04/17 11:40 Fentanyl (Sublimaze) Confirm Administered Dose 100 mcg .ROUTE .STK-MED ONE Stop: 10/04/17 13:23 Fluorescein Sodium (Ak-Fluor) Confirm Administered Dose 5 ml .ROUTE .STK-MED ONE Stop: 10/04/17 10:50 Furosemide (Lasix) Confirm Administered Dose 40 mg .ROUTE .STK-MED ONE Stop: 10/04/17 10:50 Glycopyrrolate (Robinul) Confirm Administered Dose 0.6 mg .ROUTE .STK-MED ONE Stop: 10/04/17 13:21 Hydromorphone HCl (Dilaudid) Confirm Administered Dose 2 mg .ROUTE .STK-MED ONE Stop: 10/04/17 09:14 Hydromorphone HCl (Dilaudid) 0 mg IVPUSH ONETIME ONE Stop: 10/04/17 12:41 Last Admin: 10/04/17 14:54 Dose: Not Given Cefazolin Sodium/Dextrose 1 gm (/ Premix) 50 mls @ 100 mls/hr IV ONETIME ONE Stop: 10/04/17 05:29 Last Admin: 10/04/17 14:54 Dose: Not Given Cefazolin Sodium/Dextrose 1 gm (/ Premix) 0 mls @ 100 mls/hr IV Q8H HELGA Stop: 10/05/17 12:01 Last Admin: 10/05/17 11:02 Dose: 100 mls/hr Lidocaine (Xylocaine-Mpf 2%) Confirm Administered Dose 10 ml .ROUTE .STK-MED ONE Stop: 10/04/17 07:22 Midazolam HCl (Versed 1 Mg/Ml) Confirm Administered Dose 2 mg .ROUTE .STK-MED ONE Stop: 10/04/17 07:23 Morphine Sulfate (Morphine Tubing Mill Setter 30 Mg In 30 Ml) 30 mg IV ASDIRECTED [facility]; Protocol Last Admin: 10/05/17 03:50 Dose: 30 mg Neostigmine Methylsulfate (Neostigmine) Confirm Administered Dose 5 mg .ROUTE .STK-MED ONE Stop: 10/04/17 13:21 Octyl Cyanoacrylate (Dermabond Advance) Confirm Administered Dose 1 applic .ROUTE .STK-MED ONE Stop: 10/04/17 10:10 Ondansetron HCl (Zofran) Confirm Administered Dose 8 mg .ROUTE .STK-MED ONE Stop: 10/04/17 13:21 Propofol (Diprivan 20 Ml) Confirm Administered Dose 400 mg .ROUTE .STK-MED ONE Stop: 10/04/17 07:23 Propofol (Diprivan 20 Ml) Confirm Administered Dose 200 mg .ROUTE .STK-MED ONE Stop: 10/04/17 09:54 Propofol (Diprivan 20 Ml) Confirm Administered Dose 200 mg .ROUTE .STK-MED ONE Stop: 10/04/17 10:41 Propofol (Diprivan 20 Ml) Confirm Administered Dose 200 mg .ROUTE .STK-MED ONE Stop: 10/04/17 11:43 Rocuronium [place] (Zemuron) Confirm Administered Dose 200 mg .ROUTE .STK-MED ONE Stop: 10/04/17 13:21 Scopolamine (Transderm-Scop) Confirm Administered Dose 1.5 mg .ROUTE .STK-MED ONE Stop: 10/04/17 08:32 Last Admin: 10/04/17 14:54 Dose: Not Given Sugammadex Sodium (Bridion) Confirm Administered Dose 200 mg .ROUTE .STK-MED ONE Stop: 10/04/17 13:43 - Exam General: Alert, Oriented Lungs: Normal Respiratory Effort Cardiovascular: Regular Rate, Regular Rhythm GI/Abdominal Exam: Normal Bowel Sounds, Soft Back Exam: No: CVA Tenderness (L), CVA Tenderness (R) Extremities: Non-Tender. No: Delmi's Sign Skin: Warm, Dry, Intact Wound/Incisions: Healing Well, No Drainage. No: Erythema Psy/Mental Status: Alert, Normal Affect - Problem List & Annotations (1) 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 SNOMED Code(s): 846896742 Code(s): N80.9 - ENDOMETRIOSIS, UNSPECIFIED Status: Acute Current Visit: Yes - Problem List Review Problem List Initiated/Reviewed/Updated: Yes - My Orders Last 24 Hours: My Active Orders 10/05/17 18:02 diphenhydrAMINE [Benadryl] 25 mg PO Q6H PRN 10/06/17 09:04 Ice Therapy [OM.PC] Routine 10/06/17 09:05 Heat Therapy [OM.PC] Routine 10/06/17 09:06 May Shower [RC] ASDIRECTED 10/06/17 09:15 Nitrofurantoin [place]/Macrocryst [Macrobid] 100 mg PO BID - Assessment Assessment:: POD 2 status post JUNIOR/LSO/right oophorectomy/etensive adhesiolysis/cystoscopy with J ureteral stent placed Stage IV endometriosis - Plan Plan:: Ambulate halls today. May shower. Await bowel activity. VS are stable. Start macrobid for UTI prophylaxis given stent placement. If remains stable, plan discharge in the morning.
[2017-10-06] MEDS: Nitrofurantoin Monohydrate/Macrocrystalline 100 MG Cap PO SCH ×2 (10:07→21:06)
[2017-10-06] MEDS ORDERED: Ciprofloxacin in D5W 0 ML ONE (10:36)
[2017-10-07] MEDS: Acetaminophen/oxyCODONE 325-5 MG Tab PO PRN (03:51)
--- NOTE | 2017-10-07 08:44 | PCM.PN ---
- General Info Date of Service: 10/07/17 Functional Status: Reports: Pain Controlled, Tolerating Diet, Ambulating, Urinating - Review of Systems General: Denies: Fever, Weakness Pulmonary: Denies: Shortness of Breath Cardiovascular: Denies: Chest Pain, Palpitations, Lightheadedness Gastrointestinal: Reports: Abdominal Pain (much improved today), Flatus. Denies : Nausea, Vomiting Genitourinary: Denies: Flank Pain Musculoskeletal: Denies: Back Pain Neurological: Denies: Confusion, Headache Psychiatric: Reports: No Symptoms - Patient Data Vitals - Most Recent: Last Vital Signs Temp 36.7 C 10/07/17 03:00 Pulse 66 10/07/17 03:00 Resp 18 10/07/17 03:00 BP 108/70 10/07/17 03:00 Pulse Ox 97 10/07/17 03:00 Weight - Most Recent: 77.111 kg I&O - Last 24 Hours: Intake & Output 10/06/17 10/07/17 10/07/17 22:59 06:59 14:59 Intake Total 1720 1500 Output Total 2400 1450 Balance -680 50 Med Orders - Current: Current Medications Al Hydroxide/Mg Hydroxide (Mag-Al Plus) 30 ml PO Q4H PRN PRN Reason: Indigestion Diphenhydramine HCl (Benadryl) 25 mg PO Q6H PRN PRN Reason: Itching Last Admin: 10/05/17 18:12 Dose: 25 mg Docusate Sodium (Colace) 100 mg PO BID [facility] Last Admin: 10/06/17 21:06 Dose: 100 mg Estradiol (Climara) 0.1 mg TRDERM Q7D [facility] Last Admin: 10/04/17 16:13 Dose: 0.1 mg Lactated Ringer's (Ringers, Lactated) 1,000 mls @ 125 mls/hr IV ASDIRECTED [facility] Last Admin: 10/05/17 10:25 Dose: 125 mls/hr Ibuprofen (Motrin) 600 mg PO Q6H PRN PRN Reason: Pain (mild 1-3) Nitrofurantoin Macrocrystals (Macrobid) 100 mg PO BID [facility] Last Admin: 10/06/17 21:06 Dose: 100 mg Ondansetron HCl (Zofran) 4 mg IVPUSH Q6H PRN PRN Reason: Nausea/Vomiting Last Admin: 10/05/17 10:49 Dose: 4 mg Oxycodone/Acetaminophen (Percocet 325-5 Mg) 1 tab PO Q4H PRN PRN Reason: Pain (moderate 4-6) Oxycodone/Acetaminophen (Percocet 325-5 Mg) 2 tab PO Q4H PRN PRN Reason: Pain (moderate 4-6) Last Admin: 10/07/17 03:51 Dose: 2 tab Promethazine HCl (Phenergan) 25 mg IM Q6H PRN PRN Reason: Nausea/Vomiting Last Admin: 10/04/17 15:33 Dose: 25 mg Scopolamine (Transderm-Scop) 1.5 mg TRDERM Q72H PRN PRN Reason: Nausea Last Admin: 10/04/17 08:35 Dose: 1.5 mg Sodium Chloride (Saline Flush) 10 ml FLUSH ASDIRECTED PRN PRN Reason: Keep Vein Open Sodium Chloride (Saline Flush) 2.5 ml FLUSH ASDIRECTED PRN PRN Reason: Keep Vein Open Discontinued Medications Ephedrine Sulfate (Ephedrine Sulfate) Confirm Administered Dose 50 mg .ROUTE .STK-MED ONE Stop: 10/04/17 09:18 Fentanyl (Sublimaze) Confirm Administered Dose 100 mcg .ROUTE .STK-MED ONE Stop: 10/04/17 07:23 Fentanyl (Sublimaze) Confirm Administered Dose 250 mcg .ROUTE .STK-MED ONE Stop: 10/04/17 07:23 Fentanyl (Sublimaze) 50 mcg IVPUSH Q5M PRN PRN Reason: Pain (severe 7-10) Stop: 10/05/17 09:31 Fentanyl (Sublimaze) Confirm Administered Dose 100 mcg .ROUTE .STK-MED ONE Stop: 10/04/17 09:56 Fentanyl (Sublimaze) Confirm Administered Dose 100 mcg .ROUTE .STK-MED ONE Stop: 10/04/17 11:40 Fentanyl (Sublimaze) Confirm Administered Dose 100 mcg .ROUTE .STK-MED ONE Stop: 10/04/17 13:23 Fluorescein Sodium (Ak-Fluor) Confirm Administered Dose 5 ml .ROUTE .STK-MED ONE Stop: 10/04/17 10:50 Furosemide (Lasix) Confirm Administered Dose 40 mg .ROUTE .STK-MED ONE Stop: 10/04/17 10:50 Glycopyrrolate (Robinul) Confirm Administered Dose 0.6 mg .ROUTE .STK-MED ONE Stop: 10/04/17 13:21 Hydromorphone HCl (Dilaudid) Confirm Administered Dose 2 mg .ROUTE .STK-MED ONE Stop: 10/04/17 09:14 Hydromorphone HCl (Dilaudid) 0 mg IVPUSH ONETIME ONE Stop: 10/04/17 12:41 Last Admin: 10/04/17 14:54 Dose: Not Given Cefazolin Sodium/Dextrose 1 gm (/ Premix) 50 mls @ 100 mls/hr IV ONETIME ONE Stop: 10/04/17 05:29 Last Admin: 10/04/17 14:54 Dose: Not Given Cefazolin Sodium/Dextrose 1 gm (/ Premix) 0 mls @ 100 mls/hr IV Q8H HELGA Stop: 10/05/17 12:01 Last Admin: 10/05/17 11:02 Dose: 100 mls/hr Ciprofloxacin/Dextrose (Cipro In D5w 400 Mg/200 Ml) Confirm Administered Dose 200 mls @ as directed .ROUTE .STK-MED ONE Stop: 10/06/17 10:37 Lidocaine (Xylocaine-Mpf 2%) Confirm Administered Dose 10 ml .ROUTE .STK-MED ONE Stop: 10/04/17 07:22 Midazolam HCl (Versed 1 Mg/Ml) Confirm Administered Dose 2 mg .ROUTE .STK-MED ONE Stop: 10/04/17 07:23 Morphine Sulfate (Morphine Wool Broker 30 Mg In 30 Ml) 30 mg IV ASDIRECTED [facility]; Protocol Last Admin: 10/05/17 03:50 Dose: 30 mg Neostigmine Methylsulfate (Neostigmine) Confirm Administered Dose 5 mg .ROUTE .STK-MED ONE Stop: 10/04/17 13:21 Octyl Cyanoacrylate (Dermabond Advance) Confirm Administered Dose 1 applic .ROUTE .STK-MED ONE Stop: 10/04/17 10:10 Ondansetron HCl (Zofran) Confirm Administered Dose 8 mg .ROUTE .STK-MED ONE Stop: 10/04/17 13:21 Propofol (Diprivan 20 Ml) Confirm Administered Dose 400 mg .ROUTE .STK-MED ONE Stop: 10/04/17 07:23 Propofol (Diprivan 20 Ml) Confirm Administered Dose 200 mg .ROUTE .STK-MED ONE Stop: 10/04/17 09:54 Propofol (Diprivan 20 Ml) Confirm Administered Dose 200 mg .ROUTE .STK-MED ONE Stop: 10/04/17 10:41 Propofol (Diprivan 20 Ml) Confirm Administered Dose 200 mg .ROUTE .STK-MED ONE Stop: 10/04/17 11:43 Rocuronium [place] (Zemuron) Confirm Administered Dose 200 mg .ROUTE .STK-MED ONE Stop: 10/04/17 13:21 Scopolamine (Transderm-Scop) Confirm Administered Dose 1.5 mg .ROUTE .STK-MED ONE Stop: 10/04/17 08:32 Last Admin: 10/04/17 14:54 Dose: Not Given Sugammadex Sodium (Bridion) Confirm Administered Dose 200 mg .ROUTE .STK-MED ONE Stop: 10/04/17 13:43 - Exam General: Alert, Oriented Lungs: Normal Respiratory Effort Cardiovascular: Regular Rate, Regular Rhythm GI/Abdominal Exam: Normal Bowel Sounds, Soft Back Exam: No: CVA Tenderness (L), CVA Tenderness (R) Extremities: Pedal Edema (trace). No: Delmi's Sign Skin: Warm, Dry, Intact Wound/Incisions: Healing Well, No Drainage. No: Erythema Psy/Mental Status: Alert, Normal Affect - Problem List & Annotations (1) 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 SNOMED Code(s): 735905676 Code(s): N80.9 - ENDOMETRIOSIS, UNSPECIFIED Status: Acute Current Visit: Yes - Problem List Review Problem List Initiated/Reviewed/Updated: Yes - My Orders Last 24 Hours: My Active Orders 10/06/17 09:04 Ice Therapy [OM.PC] Routine 10/06/17 09:05 Heat Therapy [OM.PC] Routine 10/06/17 09:06 May Shower [RC] ASDIRECTED 10/06/17 09:15 Nitrofurantoin [place]/Macrocryst [Macrobid] 100 mg PO BID 10/07/17 08:41 Ready for Discharge [RC] PER UNIT ROUTINE - Assessment Assessment:: POD 3 status post JUNIOR/LSO/right oophorectomy/etensive adhesiolysis/cystoscopy with J ureteral stent placed Stage IV endometriosis - Plan Plan:: Patient is ambulating, voiding and passing flatus> Tolerating a regular diet. She feels ready to go home. Has not had vaginal bleeding. Discharge to home. [facility] 6 [facility]. Discharge instructions reviewed. infection and bleeding warnings reviewed Take macrobid for UTI prophylaxis with stent in place Follow up with Dr Lopez as he has advised for stent removal.
[2017-10-07] MEDS: Nitrofurantoin Monohydrate/Macrocrystalline 100 MG Cap PO SCH (08:49)
[2017-10-07] MEDS: Docusate Sodium 100 MG Cap PO SCH (08:49)
[2017-10-07 11:51] VITALS: BP 98/67
== END 2017-10-07 10:00 | disposition home or self-care (01) | DRG 513 ==
LOC: MW.MS 07:42
PROVIDERS: ADMIT Obstetrics & Gynecology; ATTEND Obstetrics & Gynecology
PROC: 0UT90ZZ Resection of Uterus, Open Approach (ICD-10-PCS; principal; 2017-10-04)
PROC: 0UT60ZZ Resection of Left Fallopian Tube, Open Approach (ICD-10-PCS; 2017-10-04)
PROC: 0UT00ZZ Resection of Right Ovary, Open Approach (ICD-10-PCS; 2017-10-04)
PROC: 0T768DZ Dilation of Right Ureter with Intraluminal Device, Via Natural or Artificial Opening Endoscopic (ICD-10-PCS; 2017-10-04)
DX: N80.9 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, unspecified (principal); R10.2 Pelvic and perineal pain; N94.10 Unspecified dyspareunia
CPT/HCPCS: 00944; 36415; 76000; 76000-26; 80048; 84703; 85025; 85027; 86850; 86900; 86901; A9270-GY; C1765; C1769; C2625; J0690; J0744; J1170; J1940; J2250; J2274; J2405; J2550; J2704; J3010; J3490; J7120

== ENCOUNTER 2022-03-17 12:07 | Emergency (ER) | payer OTHER ==
[2022-03-17] MEDS ORDERED: Sodium Chloride 0.9% 2.5 ML Syringe FLUSH PRN (13:21)
[2022-03-17] MEDS ORDERED: Sodium Chloride 0.9% 10 ML Syringe FLUSH PRN (13:21)
[2022-03-17] MEDS ORDERED: Sodium Chloride 0.9% 1,000 ML IV ONE (13:21)
[2022-03-17] MEDS ORDERED: Ondansetron 4 MG/2 ML SDV IVPUSH ONE (13:24)
[2022-03-17 14:09] LABS: BLOOD UREA NITROGEN,BUN 7 mg/dL (7.0-18.0); CARBON DIOXIDE,CO2 26.2 mmol/L (21.0-32.0); CHLORIDE,CL 105 mmol/L (98-107); GLUCOSE RANDOM 85 mg/dL (74-106); POTASSIUM,K 3.5 mmol/L (3.5-5.1); SODIUM,NA 141 mmol/L (136-145)
[2022-03-17 14:12] LABS: ESTIMATED GFR 114 mL/min (>60)
[2022-03-17 14:21] LABS: CORONAVIRUS COVID-19 NAA NEGATIVE (NEGATIVE); INFLUENZA A NAA NEGATIVE (NEGATIVE); INFLUENZA B NAA NEGATIVE (NEGATIVE)
[2022-03-17 15:30] VITALS: BP 114/77; PULSE 67
== END 2022-03-17 15:29 | disposition home or self-care (01) ==
LOC: MW.ED 12:07
DX: N39.0 Urinary tract infection, site not specified (principal); R20.2 Paresthesia of skin; R00.2 Palpitations; E66.9 Obesity, unspecified; F17.210 Nicotine dependence, cigarettes, uncomplicated; Z86.16 Personal history of COVID-19; Z68.27 Body mass index [BMI] 27.0-27.9, adult; Z20.822 Contact with and (suspected) exposure to COVID-19
CPT/HCPCS: 0240U; 36415; 70450; 72131; 80053; 81001; 83735; 84484; 85025; 86140; 93005; 96361; 96374; 99284; J2405; J3490; J7030; 93010; 99283